=== PATIENT | female | born 1960 | race Caucasian/White ===

== ENCOUNTER → 2020-04-03 10:40 | Outpatient (CLI) | payer MEDICARE, SELFPAY ==
--- NOTE | ~2020-04-03 | XR_ITS ---
EXAMINATION: XR abdomen/kub 1V INDICATION: Flank pain and dysuria TECHNIQUE: Supine views of the abdomen were obtained on 2 radiographs. COMPARISON: None FINDINGS: Phleboliths are noted in the pelvis. No urolithiasis is identified. The bowel gas pattern i s normal. There are no dilated loops of bowel. IMPRESSION: 1. No urolithiasis identified. Reviewed, dictated and finalized at location B.
== END ==
PROVIDERS: PCP Physician Assistant; Visit Provider Physician Assistant
DX: R30.0 Dysuria (principal)
CPT/HCPCS: 74018

== ENCOUNTER → 2020-04-07 15:50 | Outpatient (CLI) | payer MEDICARE, SELFPAY ==
--- NOTE | ~2020-04-07 | XR_ITS ---
XR lumbar spine 2-3V DATE: 04/07/2020 16:13 INDICATION: Low back pain TECHNIQUE: AP, lateral, coned lateral lumbosacral views COMPARISON: 01/14/2016 MRI lumbar spine FINDINGS: There is chronic mild anterior wedging of T12. There is degenerative spurring of the lower thoracic and lumbar spine. There is moderate degenerative disc disease at L1-2 and mild degenerative disc disease at L2-3 and L3 -4. No fracture or bone destruction is evident. The included lower thoracic and lumbar pedicles are intac t. The sacroiliac joints are normal. Abdominal aortic and iliac arterial calcifications. IMPRESSION: Chronic mild anterior wedging of T12 Mild degenerative changes of the thoracic and lumbar spine Reviewed, dictated and finalized at location A.
== END ==
PROVIDERS: PCP Physician Assistant; Visit Provider Physician Assistant
DX: M54.5 Low back pain (principal); M48.54XA Collapsed vertebra, not elsewhere classified, thoracic region, initial encounter for fracture
CPT/HCPCS: 72100

== ENCOUNTER 2020-11-30 13:28 | Outpatient (CLI) | payer MEDICARE, SELFPAY ==
--- NOTE | ~2020-11-30 | CT_ITS ---
EXAMINATION: CT lung screening EXAM DATE: 11/30/2020 13:54 INDICATION: Current cigarette smoker. TECHNIQUE: Spiral low dose CT of the chest without contrast. Axial, coronal and sagittal images were reviewed. The dose-length product (DLP) for this examination was 94.89 mGy-cm. The exposure was ta ilored according to patient size (auto mA exposure control), and iterative reconstruction (ASIR) was used as additional dose reduction technique. Comparison is made to prior examination from 03/06/2019. FINDINGS: There is mild emphysema and hyperinflation. There is new 2 mm endobronchial opacity in a l eft lower lobe subsegmental bronchus, indicated on axial image 74. Several other lower lobe 3 mm nodu les, right middle lobe nodule decreased in size compared to prior study, postinfectious. Tracheobronc hial tree is patent. There is no mediastinal, hilar or axillary lymphadenopathy. There are no ple ural or pericardial effusions. There is no pneumothorax. Heart normal in size. There is moderat e coronary arterial calcification, arterial sclerosis. Upper abdomen is unremarkable. There is mode rate thoracic spondylosis without osteoblastic or osteolytic lesions identified. IMPRESSION: Lung-RADS category 4A, suspicious (5-15 % chance of malignancy); recommend followup LDCT in 3 months. Reviewed, dictated and finalized at location A. IMPRESSION: Lung-RADS category 4A, suspicious (5-15 % chance of malignancy); re commend followup LDCT in 3 months.
--- NOTE | ~2020-11-30 | CT_ITS ---
EXAMINATION: CT abdomen wo/w con EXAM DATE: 11/30/2020 13:53 INDICATION: Prior pancreatic abnormality, follow-up. TECHNIQUE: Spiral CT of the abdomen was performed without and then with intravenous injection of 100 mL Omnipaque 350. Arterial and venous phase imaging obtained. Axial, coronal and sagittal images wer e reviewed. The dose-length product (DLP) for this examination was 952.77 mGy-cm. The exposure was tailored according to patient size (auto mA exposure control), and iterative reconstruction (ASIR) wa s used as additional dose reduction technique. Comparison is made to prior examination from 9. FINDINGS: Previously seen mild fat stranding at the pancreatic head has resolved. The liver, spleen, adrenal glands and pancreas are unremarkable. Gallbladder not identified, patient likely has had ch olecystectomy. Portal and splenic veins are patent. Kidneys enhance symmetrically. There is no hyd ronephrosis. There is no retroperitoneal lymphadenopathy. There is moderate scattered arterioscl erotic disease. The stomach and small bowel are unremarkable. There is expected amount of colonic stool. No free i ntraperitoneal gas. The heart is normal in size. There are no pericardial or pleural effusions. T he lung bases are unremarkable. There are no osteoblastic or osteolytic lesions identified. IMPRESSION: 1. Resolution of previously seen pancreatic fat stranding. 2. No suspicious findings. Reviewed, dictated and finalized at location A.
[2020-11-30 13:49] LABS: Estimated Glomerular Filt Rate > 60
== END 2020-11-30 13:29 | disposition home or self-care (01) ==
PROVIDERS: PCP Physician Assistant; Visit Provider Physician Assistant
DX: F17.210 Nicotine dependence, cigarettes, uncomplicated (principal); R91.8 Other nonspecific abnormal finding of lung field
CPT/HCPCS: 71271; 74170; Q9967